=== PATIENT | male | born 1970 | race Caucasian/White ===

== ENCOUNTER 2016-03-30 17:22 | Emergency (ER) | payer BC ==
--- NOTE | 2016-03-30 18:21 | UC ---
Hypertension HPI - HPI Summary HPI Summary: Pt takes daily meds for HTN, usually in the 120s/80s range. Started doxycycline for 3 weeks of productive cough 03/25, and since then has noticed his face and ears getting flushed and hot. These were similar sx to when his HTN was first dx. Measured BP and got elevated readings of 130s/100s. On triage BP was 144/ 98. Worried that medicine could be causing high BP. - History of Current Complaint Chief Complaint: UCGeneralIllness Stated Complaint: HIGH BLOOD PRESSURE Time Seen by Provider: 03/30/16 18:05 Hx Obtained From: Patient Onset/Duration: Gradual Onset, Lasting Days Timing: Constant Aggravating Factor(s): Nothing Alleviating Factor(s): Nothing Associated Signs And Symptoms: Negative: Chest Pain, Vision Changes, Headaches, Numbness, Tingling, Dizziness, SOB, Swelling Related Hx: Similar Episode - prior to tx of HTN - Allergies/Home Medications Allergies/Adverse Reactions: Allergies Allergy/AdvReac Type Severity Reaction Status Date / Time No Known Allergies Allergy Verified 03/25/16 07:52 PMH/Surg Hx/FS Hx/Imm Hx Endocrine History Of: Denies: Diabetes, Thyroid Disease, Hyperthyroidism, Hypothyroidism, Dyslipidemia Cardiovascular History Of: Reports: Hypertension Denies: Cardiac Disorders, Pacemaker/ICD, Myocardial Infarction, Congestive Heart Failure, Atrial Fibrillation, Deep Vein Thrombosis, Bleeding Disorders Respiratory History Of: Denies: COPD, Asthma, Bronchitis, Pneumonia, Pulmonary Embolism GI/ History Of: Denies: Ulcer Neurological History Of: Denies: TIA, CVA, Dementia, Seizures, Migraine Psychological History Of: Denies: Anxiety, Depression, Bipolar Disorder, Schizophrenia, Post Traumatic Stress Disorder Cancer History Of: Denies: Lung Cancer, Colorectal Cancer, Breast Cancer, Prostate Cancer, Cervical Cancer Other History Of: Negative For: HIV, Hepatitis B, Hepatitis C, Anticoagulant Therapy - Surgical History Surgical History: None - Family History Known Family History: Positive: Hypertension Negative: Cardiac Disease - Social History Occupation: Employed Full-time Lives: With Family Alcohol Use: Weekly Alcohol Amount: couple of times a week Substance Use Type: None Smoking Status (MU): Never Smoked Tobacco When Did the Patient Quit Smoking/Using Tobacco: quit chewing tobacco november 2015 - Immunization History Most Recent Influenza Vaccination: 01/10 Review of Systems Constitutional: Negative Skin: Other - flushing and warmth Eyes: Negative ENT: Negative Respiratory: Negative Cardiovascular: Negative Gastrointestinal: Negative Genitourinary: Negative Motor: Negative Neurovascular: Negative Musculoskeletal: Negative Neurological: Negative Psychological: Negative All Other Systems Reviewed And Are Negative: Yes Physical Exam Triage Information Reviewed: Yes Appearance: Well-Appearing, No Pain Distress, Well-Nourished Vital Signs: Initial Vital Signs Temp 97.8 F 03/30/16 17:37 Pulse 85 03/30/16 17:37 Resp 18 03/30/16 17:37 BP 144/98 03/30/16 17:37 Pulse Ox 98 03/30/16 17:37 Vital Signs Reviewed: Yes Eye Exam: Normal Eyes: Positive: Conjunctiva Clear ENT Exam: Normal ENT: Positive: Normal ENT inspection, Hearing grossly normal, Pharynx normal, TMs normal Dental Exam: Normal Neck exam: Normal Neck: Positive: Supple, Nontender, No Lymphadenopathy Respiratory Exam: Normal Respiratory: Positive: Chest non-tender, Lungs clear, Normal breath sounds, No respiratory distress, No accessory muscle use Cardiovascular Exam: Normal Cardiovascular: Positive: RRR, No Murmur Abdominal Exam: Normal Abdomen Description: Positive: Nontender, No Organomegaly, Soft Musculoskeletal Exam: Normal Neurological Exam: Normal Psychological Exam: Normal Skin Exam: Normal Hypertension Course/Dx - Differential Dx/Diagnosis Provider Diagnoses: chronic hypertension with elevated blood pressure. adverse reaction to doxycycline Discharge - Discharge Plan Condition: Stable Disposition: HOME Patient Education Materials: Chronic Hypertension (ED) Referrals: Dean Foreman MD [Primary Care Provider] - If Needed Additional Instructions: I agree that it is quite possible the doxycycline could be causing a temporary increase in your blood pressure. However, the blood pressure readings you have gotten do not present any immediate danger to your health. As long as your numbers go back to an acceptable range after you are done with the antibiotic, there should be no harm. You have taken several days of your antibiotics, however, and your cough is improved -- I feel it would be perfectly reasonable to simply stop the doxycycline.
== END 2016-03-30 18:24 | disposition home or self-care (01) ==
LOC: UCEAST 17:22
DX: I10 Essential (primary) hypertension (principal); Z87.891 Personal history of nicotine dependence; T50.995A Adverse effect of other drugs, medicaments and biological substances, initial encounter; Y92.9 Unspecified place or not applicable
CPT/HCPCS: 99211; G0463